=== PATIENT | male | born 1960 | race Caucasian/White ===

== ENCOUNTER 2024-02-21 08:26 | Inpatient (IN) ==
--- NOTE | 2024-02-21 08:29 | Emergency Department Note ---
Impression & Plan ST elevation (STEMI) myocardial infarction, Chest pain, Unstable angina, Abnormal EKG ED Provider Note NAME: PRASHANTH PEREZ AGE: 64 SEX: M : 1960 ARRIVES VIA: Ambulance INFORMANT: Patient, ED PROVIDER(S): Edward Lewis DO CHIEF COMPLAINT: Chest pain HPI: The patient is a 64-year-old male who presented to the emergency department for an evaluation of chest pain. The patient describes left-sided chest pain with radiation to the left arm. 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 He does not wear a heart rate monitor so we cannot correlate this with a specific heart rate. He states when he rests the pain goes away. He has been having these episodes over the course the last week intermittently almost always with exertion. The patient denies having any nausea or vomiting. He denies having any difficulty breathing. The patient denies having any black or tarry stools. The patient went to see his family doctor today and had an abnormal EKG and was sent to the emergency department by ambulance. ROS: See above HPI for pertinent positives & negatives. A total of 10 systems reviewed and were otherwise negative. PAST MEDICAL HISTORY: See Below PAST SURGICAL HISTORY: See Below FAMILY HISTORY: See Below SOCIAL HISTORY: See Below HOME MEDICATIONS: See Below ALLERGIES: See Below VITALS: See Below PHYSICAL EXAMINATION: GENERAL: Patient is awake alert in no acute distress patient is resting comfortably and showing no signs of anxiety EYES: The conjunctivae are clear. The pupils are round and reactive. EARS, NOSE, MOUTH AND THROAT: The nose is without any evidence of any deformity. NECK: The neck is nontender and supple. RESPIRATORY: Normal respiratory effort is noted there is no evidence of wheezing rhonchi or rales CARDIOVASCULAR: Regular rate and rhythm noted there no murmurs rubs or gallops normal S1 normal S2. GASTROINTESTINAL: The abdomen is soft. Abdomen is nontender. MUSCULOSKELETAL/EXTREMITIES: There is no evidence of gross deformity full range of motion is noted in the hips and shoulders. SKIN: There is no obvious evidence of any rash. There are no petechiae, pallor or cyanosis noted. NEUROLOGIC: Patient is awake alert and oriented x3 MEDICAL DECISION MAKING: The patient is a 64-year-old male who presented to the emergency department for an evaluation of chest pain. The patient was seen by his primary care physician and had an EKG that showed ischemia. He was sent to the emergency department by ambulance. The patient had no symptoms. He related symptoms only with exertion. I discussed the patient's laboratory and radiographic studies with him. EKG appeared to be consistent with regional ischemia. The patient was treated with aspirin prior to arrival. He was treated with Brilinta as well as heparin in the emergency department. He remained pain-free. I discussed his condition with the tapering machine operator. Since this was not a true ST segment elevation ND he was not made a heart alert and the patient did not have any pain while in the emergency department. I discussed his condition with the on-call [facility] Hospitalist group. They have agreed to evaluate the patient after cardiac catheterization. The patient was agreeable to cardiac catheterization and was taken to the Service Desk Agent to be evaluated by Dr. Garcia. Triage Nursing notes reviewed. Prior medical records reviewed Vital Signs: reviewed and remarkable for bradycardia. Differential diagnosis: Cardiac ischemia, aortic dissection, pulmonary embolism, pneumothorax, pneumonia, pericarditis, myocarditis, esophageal rupture, GERD, cholecystitis, pancreatitis, musculoskeletal, as well as other pathologies. ER treatment provided: See below Diagnostics interpreted by me: ECG: EKG was obtained in the emergency department. My interpretation is sinus bradycardia at 58 bpm. There is no ectopy. ST segment elevations were noted in aVL as well as aVR. This has the appearance of widespread ischemia but no specific ST segment elevation ND was noted. No previous tracing was available. A prehospital EKG was reviewed. My interpretation is sinus rhythm at 60 bpm. There is no ectopy. Similar ST depression was noted in the inferior apical and low lateral leads. An EKG that was obtained in the patient's primary care physician's office was reviewed. My interpretation is sinus bradycardia [address] depressions were noted in the inferior apical and low lateral leads with T wave versions as well. This appears similar to the EKG obtained in the emergency department. Cardiac Monitoring: An order was placed for continuous cardiac monitoring. The monitor shows a rate of 59 bpm with sinus bradycardia. Laboratory studies: As stated above and show below. Imaging studies: See below. Radiographic imaging was reviewed by myself Consultation(s): I discussed this case with Dr. Garcia who is on-call for interventional cardiology. I discussed this case with Salome who is on-call for the [facility] hospitalist group. ED COURSE: Procedures: none Critical Care: I have personally spent greater than 45 minutes of critical care time in the direct management of this patient. This includes bedside care, interpretation of diagnostic studies, and testing, discussion with consultants, patient, and family members, and other required patient management activities. This 45 minutes is in excess of all separately billable procedures. Past Med/Surg History Medical History (Updated 02/21/24 @ 13:37 by Edward Lewis DO) High cholesterol Surgical History (Updated 02/21/24 @ 12:14 by Marielle Alexandra PA-C) S/P drug eluting coronary stent placement Social History Smoking Status: Never smoker Hx Alcohol Use: Yes Alcohol type: beer Hx Substance Use: No Current Living Situation: Family Feels Safe at Home: Yes Safety Concerns: Feels Safe At This Time Allergies Allergies Allergy/AdvReac Type Severity Reaction Status Date / Time No Known Drug Allergies Allergy Unknown Verified 02/21/24 09:42 Results & Data (ED) Vital Signs Vital Signs - 24 hr 02/21/24 08:32 02/21/24 08:32 02/21/24 08:32 Temperature 36.6 C Temperature Source Oral Pulse Rate 61 Pulse Rate [Finger] Pulse Rhythm [Finger] Pulse Strength [Finger] Respiratory Rate 18 Respiratory Effort / Characteristics Non-Labored Non-Labored Respiratory Depth Normal Respiratory Pattern Blood Pressure 174/111 H Blood Pressure [Right Arm] Blood Pressure Mean 132 Blood Pressure Mean [Right Arm] Blood Pressure Position [Right Arm] Pulse Oximetry 96 Oxygen Delivery Method Room Air Room Air Sepsis Recent Fever Within 48 Hours No Sepsis New/Unexplained Change in Mental Status No Sepsis Action Taken by Nursing No Action Required 02/21/24 08:39 02/21/24 09:03 02/21/24 09:42 Temperature 36.8 C Temperature Source Oral Pulse Rate 61 Pulse Rate [Finger] 63 58 L Pulse Rhythm [Finger] Regular Pulse Strength [Finger] Normal Respiratory Rate 16 18 Respiratory Effort / Characteristics Non-Labored Non-Labored Respiratory Depth Normal Normal Respiratory Pattern Regular Blood Pressure Blood Pressure [Right Arm] 160/89 H 154/105 H Blood Pressure Mean Blood Pressure Mean [Right Arm] 112 121 Blood Pressure Position [Right Arm] Lying Pulse Oximetry 98 99 Oxygen Delivery Method Room Air Room Air Sepsis Recent Fever Within 48 Hours Sepsis New/Unexplained Change in Mental Status Sepsis Action Taken by Nursing 02/21/24 11:30 02/21/24 11:45 02/21/24 12:00 Temperature Temperature Source Pulse Rate Pulse Rate [Finger] 66 61 59 L Pulse Rhythm [Finger] Regular Regular Regular Pulse Strength [Finger] Normal Normal Normal Respiratory Rate 18 18 18 Respiratory Effort / Characteristics Non-Labored Non-Labored Non-Labored Respiratory Depth Normal Normal Normal Respiratory Pattern Regular Regular Regular Blood Pressure Blood Pressure [Right Arm] 145/92 H 134/86 142/90 H Blood Pressure Mean Blood Pressure Mean [Right Arm] 109 102 107 Blood Pressure Position [Right Arm] Lying Lying Lying Pulse Oximetry 100 100 98 Oxygen Delivery Method Room Air Room Air Room Air Sepsis Recent Fever Within 48 Hours Sepsis New/Unexplained Change in Mental Status Sepsis Action Taken by Nursing 02/21/24 12:15 02/21/24 12:30 02/21/24 12:45 Temperature Temperature Source Pulse Rate Pulse Rate [Finger] 58 L 60 59 L Pulse Rhythm [Finger] Regular Regular Regular Pulse Strength [Finger] Normal Normal Normal Respiratory Rate 18 16 16 Respiratory Effort / Characteristics Non-Labored Non-Labored Non-Labored Respiratory Depth Normal Normal Normal Respiratory Pattern Regular Regular Regular Blood Pressure Blood Pressure [Right Arm] 142/74 H 144/81 H 114/54 L Blood Pressure Mean Blood Pressure Mean [Right Arm] 96 102 74 Blood Pressure Position [Right Arm] Lying Lying Lying Pulse Oximetry 100 100 98 Oxygen Delivery Method Room Air Room Air Room Air Sepsis Recent Fever Within 48 Hours Sepsis New/Unexplained Change in Mental Status Sepsis Action Taken by [facility] Medications Current Medication List: was personally reviewed by me Laboratory Data Attestation: I reviewed the patient's lab results. 02/21/24 08:35 02/21/24 08:35 Lab Results 02/21/24 02/21/24 02/21/24 Range/Units 08:35 10:52 11:09 WBC 7.65 (4.8-10.8) K/ul RBC 5.23 (4.70-6.10) M/uL Hgb 16.0 (14.0-18.0) g/dl Hct 46.5 (42.0-52.0) % MCV 88.9 (80.0-100.0) fL MCH 30.6 (25.0-34.0) pg MCHC 34.4 (32.0-36.0) g/dL RDW Std Deviation 40.2 (36.4-46.3) fL RDW Coeff of Kasandra 12.3 (11.5-14.5) % Plt Count 257 (130-400) K/uL MPV 9.5 (9.4-12.4) fL Immature Gran % (Auto) 0.5 % Neut % (Auto) 68.4 % Lymph % (Auto) 20.8 % [place] % (Auto) 8.1 % Eos % (Auto) 1.7 % Baso % (Auto) 0.5 % Neut # (Auto) 5.23 (1.40-6.50) K/uL Lymph # (Auto) 1.59 (1.20-3.40) K/uL [place] # (Auto) 0.62 H (0.11-0.59) K/uL Eos # (Auto) 0.13 (0.00-0.50) K/uL Baso # (Auto) 0.04 (0.00-0.20) K/uL Immature Gran # (Auto) 0.04 (0.01-0.20) K/uL PT 10.2 (9.0-12.0) Seconds INR 0.9 (0.9-1.1) APTT 29 (21-31) Seconds PTT Ratio 1.1 Activ Coag Time Kaolin 239 H 266 H (94-140) SECONDS Sodium 143 (136-145) mmol/L Potassium 4.5 (3.5-5.1) mmol/L Chloride 108 H (98-107) mmol/L Carbon Dioxide 29 (21-32) mmol/L Anion Gap 6 (3-11) BUN 21 (6-23) mg/dl Creatinine 1.04 (0.6-1.4) mg/dl Est Cr Clr Drug Dosing 75.5 ml/min Est GFR ( Amer) 88.1 ml/min Est GFR (Non-Af Amer) 76.1 ml/min BUN/Creatinine Ratio 20.2 H (10-20) Glucose 120 H (70-99(Fasting)) mg/dl Calcium 9.7 (8.6-10.3) mg/dl Total Bilirubin 0.7 (0.2-1.0) mg/dl AST 16 (13-39) U/L ALT 19 (7-52) U/L Alkaline Phosphatase 48 (34-104) U/L Troponin I High Sens 73.1 H* (0-20) pg/ml Total Protein 7.6 (6.0-8.3) gm/dl Albumin 4.6 (3.4-5.0) gm/dl Globulin 3.0 (2.5-4.0) gm/dl Albumin/Globulin Ratio 1.5 (0.9-2) Lipase 17 (11-82) U/L Administered Medications Heparin Sodium/Dextrose (Heparin Sodium/Dextrose) 25,000 units in 500 mls @ 18 mls/hr IV .Q24H FADY; Protocol Stop: 03/22/24 08:59 Last Admin: 02/21/24 08:57 Dose: 900 units/hr, 18 mls/hr Documented By: HERBIE Co-signed By: FREDDY Discontinued Medications Fentanyl Citrate (Fentanyl Citrate Pf 100 Mcg/2 Ml Vial) Confirm Administered Dose 100 mcg .ROUTE .STK-MED ONE Stop: 02/21/24 09:48 Last Increment: 02/21/24 11:08 Dose: 75 mcg Documented By: JOSUE Heparin Sodium (Porcine) (Heparin Sod (Porcine) 1000 Unit/Ml) 1 units IV NOW ONE Stop: 02/21/24 08:54 Last Admin: 02/21/24 08:57 Dose: 4,000 units Documented By: HERBIE Co-signed By: FREDDY Heparin Sodium (Porcine) (Heparin (Porcine) 1000 Unit/Ml 10 Ml (Service Desk Agent Use Only)) Confirm Administered Dose 10,000 units .ROUTE .STK-MED ONE Stop: 02/21/24 09:48 Last Admin: 02/21/24 11:11 Dose: 8,000 units Documented By: JOSUE Heparin Sodium/Dextrose (Heparin Iv Adult Wt-Based Low-Dose W/ Initial Bolus Protocol) 1 each IV NOW STA; Protocol Stop: 02/21/24 08:39 Last Admin: 02/21/24 09:06 Dose: Not Given Documented By: HERBIE Heparin Sodium/Sodium Chloride (Heparin In Nss Infusion 1000 Unit/500 Ml (2 U/Ml) Bag) Confirm Administered Dose 3,000 units IV .STK-MED ONE Stop: 02/21/24 09:48 Last Admin: 02/21/24 10:35 Dose: 3,000 units Documented By: JOSUE Ioversol (Optiray 350) Confirm Administered Dose 1 ml .ROUTE .[facility]-MED ONE Stop: 02/21/24 09:48 Last Admin: 02/21/24 11:09 Dose: 140 ml Documented By: JOSUE Midazolam HCl (Midazolam Hcl 1 Mg/Ml 2ml Vial) Confirm Administered Dose 2 mg .ROUTE .STK-MED ONE Stop: 02/21/24 09:48 Last Admin: 02/21/24 11:08 Dose: 2 mg Documented By: JOSUE Nicardipine HCl (Nicardipine Hcl Inj 2.5 Mg/Ml 10 Ml Amp) Confirm Administered Dose 25 mg .ROUTE .[facility]-MED ONE Stop: 02/21/24 09:48 Last Admin: 02/21/24 10:35 Dose: 25 mg Documented By: JOSUE Nitroglycerin/Dextrose (Nitroglycerin/D5w 100mcg/Ml 20ml Syr) Confirm Administered Dose 2,000 mcg .ROUTE .[facility] ONE Stop: 02/21/24 09:48 Last Admin: 02/21/24 10:35 Dose: 2,000 mcg Documented By: JOSUE Protamine Sulfate (Protamine Sulfate 10 Mg/Ml 5 Ml Vial) Confirm Administered Dose 50 mg IV .[facility] ONE Stop: 02/21/24 12:28 Last Admin: 02/21/24 12:36 Dose: 10 mg Documented By: CELESTINO Ticagrelor (Ticagrelor 90 Mg Tab) 180 mg PO ONE ONE Stop: 02/21/24 08:39 Last Admin: 02/21/24 08:58 Dose: 180 mg Documented By: HERBIE Imaging Data Attestation: I personally reviewed and interpreted this imaging study as follows: My Impression: 1 view chest x-ray was obtained in the emergency department. My interpretation is no free air or definite infiltrate, final report below. Radiologist's Impression: Chest X-Ray 02/21/24 08:28 XR chest 1V portable CLINICAL HISTORY: Chest pain, nonspecific TECHNIQUE: Single frontal radiograph of the chest was obtained. Comparison: None available at the time of this dictation. FINDINGS: No lines and tubes are seen. The cardiomediastinal silhouette is normal. The lungs are clear. No evidence of pleural effusion or pneumothorax. IMPRESSION: No acute chest disease. ACT 112: Negative or not required by law. Electronically signed by: Andry Caicedo M.D. 02/21/2024 8:58 AM Discharge Plan Visit Data Chief Complaint: Cardiac Assessment ED Provider: Edward Lewis Discharge Problem: ST elevation (STEMI) myocardial infarction, Chest pain, Unstable angina, Abnormal EKG Patient Disposition: Being Evaluated by Hospitalist Discharge Instructions Interventions: ED Discharge Assessment Last Done: 02/21/24 09:28 Discharge Problem: ST elevation (STEMI) myocardial infarction Qualifiers: Involved coronary artery: unspecified coronary artery Qualified Code(s): I21.3 - ST elevation (STEMI) myocardial infarction of unspecified site Chest pain Qualifiers: Chest pain type: unspecified Qualified Code(s): R07.9 - Chest pain, unspecified
[2024-02-21 08:57] LABS: INR 0.9 (0.9-1.1); Partial Thromboplastin Ratio 1.1; Partial Thromboplastin Time 29 Seconds (21-31); Prothrombin Time 10.2 Seconds (9.0-12.0)
[2024-02-21] MEDS: HEPARIN SODIUM/DEXTROSE 25,000 UNITS/500 ML BAG IV SCH (08:57)
[2024-02-21] MEDS: HEPARIN SOD (PORCINE) 1000 UNIT/ML IV ONE (08:57)
[2024-02-21 08:58] LABS: Basophils # (auto) 0.04 K/uL (0.00-0.20); Basophils % (auto) 0.5 %; Eosinophils # (auto) 0.13 K/uL (0.00-0.50); Eosinophils % (auto) 1.7 %; Hematocrit (blood only) 46.5 % (42.0-52.0); Immature Granulocytes # (auto) 0.04 K/uL (0.01-0.20); Immature Granulocytes % (auto) 0.5 %; Lymphocytes # (auto) 1.59 K/uL (1.20-3.40); Lymphocytes % (auto) 20.8 %; Mean Corpuscular Hemoglobin 30.6 pg (25.0-34.0); Mean Corpuscular Hgb Conc 34.4 g/dL (32.0-36.0); Mean Corpuscular Volume 88.9 fL (80.0-100.0); Mean Platelet Volume 9.5 fL (9.4-12.4); Monocytes # (auto) 0.62 K/uL (0.11-0.59); Monocytes % (auto) 8.1 %; Neutrophils # (auto) 5.23 K/uL (1.40-6.50); Neutrophils % (auto) 68.4 %; Platelet Count 257 K/uL (130-400); RDW Coefficient of Variation 12.3 % (11.5-14.5); RDW Standard Deviation 40.2 fL (36.4-46.3); Red Blood Count 5.23 M/uL (4.70-6.10); White Blood Count 7.65 K/ul (4.8-10.8)
[2024-02-21] MEDS: TICAGRELOR 90 MG TAB PO ONE (08:58)
--- NOTE | 2024-02-21 09:00 | XRay Report ---
XR chest 1V portable CLINICAL HISTORY: Chest pain, nonspecific TECHNIQUE: Single frontal radiograph of the chest was obtained. Comparison: None available at the time of this dictation. FINDINGS: No lines and tubes are seen. The cardiomediastinal silhouette is normal. The lungs are clear. No evid ence of pleural effusion or pneumothorax. IMPRESSION: No acute chest disease. ACT 112: Negative or not required by law. Electronically signed by: Andry Caicedo M.D. 02/21/2024 8:58 AM
[2024-02-21] MEDS: Heparin IV Adult Wt-Based Low-Dose w/ INITIAL Bolus Protocol IV STA (09:06)
[2024-02-21] MEDS ORDERED: HEPARIN SOD (PORCINE) 1000 UNIT/ML IV ONE (09:15)
[2024-02-21 09:17] LABS: Albumin Globulin Ratio 1.5 (0.9-2); Albumin Level 4.6 gm/dl (3.4-5.0); BUN Creatinine Ratio 20.2 (10-20); Bilirubin,Total 0.7 mg/dl (0.2-1.0); Calcium 9.7 mg/dl (8.6-10.3); Creatinine Clr Calc Pharmacy 75.5 ml/min; Est GFR (African American) 88.1 ml/min; Est GFR (Non-African American) 76.1 ml/min; Potassium 4.5 mmol/L (3.5-5.1); Total Protein 7.6 gm/dl (6.0-8.3)
[2024-02-21 09:27] LABS: Troponin I High Sensitivity 73.1 pg/ml (0-20)
--- NOTE | 2024-02-21 10:16 | Pre Anesthesia Assessment ---
Date of Service February 21, 2024 Pre Sedation Assessment Vital Signs Temp Pulse Pulse Resp BP BP Pulse Ox 02/21/24 09:42 98.2 F 58 L 18 154/105 H 99 02/21/24 09:03 63 16 160/89 H 98 02/21/24 08:39 61 02/21/24 08:32 02/21/24 08:32 97.9 F 61 18 174/111 H 96 O2 Del Method 02/21/24 09:42 Room Air 02/21/24 09:03 Room Air 02/21/24 08:39 02/21/24 08:32 Room Air 02/21/24 08:32 Room Air Cardiovascular + regular rate Respiratory + respiratory effort normal Pre-Sedation Airway Assessment Smoking Status: Never smoker Hx Sleep Apnea: No Hx Difficult Intubation: No Short, Thick Neck: Yes Thyromental Distance: > or= 3.5 Finger Breadths Oral Cavity: + Capped Teeth Mallampati Class: I ASA: ASA2 Procedure Planning Contraindications for Sedation: none Current Medications Reviewed: Yes Notes The planned sedation has been discussed with the patient. Informed Consent was obtained. I have identified the patient, determined the appropriateness of sedation and have assessed the patient immediately prior to the procedure. All medicine(s) and interventions are by my order.
[2024-02-21] MEDS: niCARdipine HCL INJ 2.5 MG/ML 10 ML AMP ONE (10:35)
[2024-02-21] MEDS: NITROGLYCERIN/D5W 100MCG/ML 20ML SYR ONE (10:35)
[2024-02-21] MEDS: MIDAZOLAM HCL 1 MG/ML 2ML VIAL ONE (11:08)
[2024-02-21] MEDS: fentaNYL citrate PF 100 MCG/2 ML VIAL ONE (11:08)
[2024-02-21] MEDS: OPTIRAY 350 ONE (11:09)
[2024-02-21] MEDS: HEPARIN (PORCINE) 1000 UNIT/ML 10 ML (CATH LAB USE ONLY) ONE (11:11)
--- NOTE | 2024-02-21 11:40 | History & Physical Report ---
Date of Service February 21, 2024 Assessment & Plan (1) Chest pain: (2) Chest tightness: (3) Abnormal EKG: (4) NSTEMI (non-ST elevation myocardial infarction): (5) S/P drug eluting coronary stent placement: Plan: Michael Brewster is a 64y/o M with PMHx of hyperlipidemia [on Crestor] who presented to the ED via EMS for further evaluation of an abnormal EKG discovered at his PCP appointment this morning. As noted above, patient was seen by his PCP this morning for evaluation of ongoing chest pain/tightness w/ exertion x 2 weeks and was sent here via ambulance as his in-office his EKG revealed abnormal findings of an acute ST elevation MN involving the LAD coronary artery. EKG performed in the ED revealed evidence of NSTEMI. Patient loaded with heparin and Brilinta in ED. Patient then underwent successful PCI of mid RCA with single ISAC placement, performed by Dr. Garcia. Multivessel coronary artery disease noted as well during cardiac catheterization procedure: 95% acute mid RCA, 80-90% small mid RPDA [too small for PCI], 40% distal LMCA. -Admit to PCU, continuous cardiac monitoring -Dr. Garcia consulted for further cardiac management -A1C and fasting lipid panel in AM -Continue Brilinta -Started on aspirin, rosuvastatin, lisinopril (6) Hyperlipidemia: Plan: -Was taking rosuvastatin 20mg daily at home -High-dose statin therapy of rosuvastatin 40mg now initiated Code Status: Full Code PCP: Teagan Briscoe MD Dispo: Admit to PCU Patient seen in collaboration with Dr. Kirkland. Please see addendum. I spent a total of 75 minutes coordinating, documenting, and providing care for this patient excluding time spent in the performance of separately billed services. This included personally reviewing all current laboratories and imaging studies, medical reconciliation, outpatient chart review and discussion with specialists. History of Present Illness Chief Complaint: Abnormal EKG Primary Care Provider: Teagan Briscoe MD Michael Brewster is a 64y/o M with PMHx of hyperlipidemia [on Crestor] who presented to the ED via EMS for further evaluation of an abnormal EKG discovered at his PCP appointment this morning. History obtained from patient, and associated ED/PCP records. Patient seen at bedside in the ED, and was accompanied in the room by his . Patient seen with Dr. Kirkland and Salome Lewis PA-C. As noted above, patient was seen by his PCP this morning for evaluation of ongoing chest pain/tightness w/ exertion x 2 weeks and was sent here via ambulance as his in-office his EKG revealed abnormal findings of an acute ST elevation MN involving the LAD coronary artery. Patient reports that he is very active, and endorses running ~3-4 miles 3- 4x/week. Over the past 2 weeks, he has been experiencing chest pain/tightness while running that resolves with rest. Patient denies any previous personal cardiac hx, but does report an extensive family hx of cardiac issues. His reports that he had an episode the other day where he woke up in the middle of the night with some chest discomfort that resolved rather quickly, but he denies any orthopnea or any other incidences of chest pain/tightness at rest. He mentions that he participated in a 5K yesterday with his and mostly walked, but did state he jogged a few times to see if the chest pain/tightness would happen again and it did. He does endorse some mild tingling down his left arm during these episodes in addition to the chest pain, and states that tightness is primarily felt on the left side of his chest. He denies any incidence of numbness in his left arm. However, to once again reiterate, the chest pain/tightness and left arm tingling completely resolves with rest. Patient denies any having any difficulty breathing or associated N/V. Nonsmoker. He does endorse consuming ~6-7 craft beers/week, but states he does not drink any more than 2 beers at a time. EKG performed in the ED revealed the following: sinus paul w/ ventricular rate of 58bpm, possible LAE, LAD and LVH w/ repolarization abnormality. Initial trop 73.1 in ED. He is already scheduled and set to go to the [facility] w/ Dr. Garcia this AM. Patient loaded with heparin and Brilinta in ED. Allergies Allergy/AdvReac Type Severity Reaction Status Date / Time No Known Drug Allergies Allergy Unknown Verified 02/21/24 09:42 Home Medications Medication Instructions Recorded Confirmed Type rosuvastatin 20 mg tablet 20 mg PO DAILY 02/21/24 02/21/24 History Past Med/Surg History Medical History High cholesterol Surgical History S/P drug eluting coronary stent placement Social History Smoking Status: Never smoker Hx Alcohol Use: Yes Alcohol type: beer Hx Substance Use: No Current Living Situation: Family Feels Safe at Home: Yes Safety Concerns: Feels Safe At This Time Review of Systems Review of Systems: At least ten systems reviewed and negative, except as noted in the HPI. Physical Exam Physical Exam: Please refer to Dr. Kirkland addendum for physical exam findings. Results & Data Results & Data Vital Signs (Past 12 Hours) Vital Signs Temp Pulse Pulse Resp BP BP Pulse Ox 02/21/24 09:42 36.8 C 58 L 18 154/105 H 99 02/21/24 09:03 63 16 160/89 H 98 02/21/24 08:39 61 02/21/24 08:32 02/21/24 08:32 36.6 C 61 18 174/111 H 96 O2 Del Method 02/21/24 09:42 Room Air 02/21/24 09:03 Room Air 02/21/24 08:39 02/21/24 08:32 Room Air 02/21/24 08:32 Room Air Laboratory Results Short CBC 02/21/24 Range/Units 08:35 WBC 7.65 (4.8-10.8) K/ul Hgb 16.0 (14.0-18.0) g/dl Hct 46.5 (42.0-52.0) % Plt Count 257 (130-400) K/uL BMP 02/21/24 08:35 Sodium 143 Potassium 4.5 Chloride 108 H Carbon Dioxide 29 BUN 21 Creatinine 1.04 Glucose 120 H Calcium 9.7 Liver Function 02/21/24 Range/Units 08:35 Total Bilirubin 0.7 (0.2-1.0) mg/dl AST 16 (13-39) U/L ALT 19 (7-52) U/L Alkaline Phosphatase 48 (34-104) U/L Albumin 4.6 (3.4-5.0) gm/dl Diagnostic Findings Chest X-Ray 02/21/24 08:28 XR chest 1V portable CLINICAL HISTORY: Chest pain, nonspecific TECHNIQUE: Single frontal radiograph of the chest was obtained. Comparison: None available at the time of this dictation. FINDINGS: No lines and tubes are seen. The cardiomediastinal silhouette is normal. The jeanne ngs are clear. No evidence of pleural effusion or pneumothorax. IMPRESSION: No acute chest disease. ACT 112: Negative or not required by law. Electronically signed by: Andry Caicedo M.D. 02/21/2024 8:58 AM Medications Administered Heparin Sodium/Dextrose (Heparin Sodium/Dextrose) 25,000 units in 500 mls @ 18 mls/hr IV .Q24H FADY; Protocol Stop: 03/22/24 08:59 Last Admin: 02/21/24 08:57 Dose: 900 units/hr, 18 mls/hr Documented By: HERBIE Co-signed By: FREDDY Discontinued Medications Fentanyl Citrate (Fentanyl Citrate Pf 100 Mcg/2 Ml Vial) Confirm Administered Dose 100 mcg .ROUTE .STK-MED ONE Stop: 02/21/24 09:48 Last Increment: 02/21/24 11:08 Dose: 75 mcg Documented By: JOSUE Heparin Sodium (Porcine) (Heparin Sod (Porcine) 1000 Unit/Ml) 1 units IV NOW ONE Stop: 02/21/24 08:54 Last Admin: 02/21/24 08:57 Dose: 4,000 units Documented By: HERBIE Co-signed By: FREDDY Heparin Sodium (Porcine) (Heparin (Porcine) 1000 Unit/Ml 10 Ml (Avionics Systems Technician Use Only)) Confirm Administered Dose 10,000 units .ROUTE .STK-MED ONE Stop: 02/21/24 09:48 Last Admin: 02/21/24 11:11 Dose: 8,000 units Documented By: JOSUE Heparin Sodium/Dextrose (Heparin Iv Adult Wt-Based Low-Dose W/ Initial Bolus Protocol) 1 each IV NOW STA; Protocol Stop: 02/21/24 08:39 Last Admin: 02/21/24 09:06 Dose: Not Given Documented By: HERBIE Heparin Sodium/Sodium Chloride (Heparin In Nss Infusion 1000 Unit/500 Ml (2 U/Ml) Bag) Confirm Administered Dose 3,000 units IV .STK-MED ONE Stop: 02/21/24 09:48 Last Admin: 02/21/24 10:35 Dose: 3,000 units Documented By: HEALTH CARE SOCIAL WORKER Ioversol (Optiray 350) Confirm Administered Dose 1 ml .ROUTE .STK-MED ONE Stop: 02/21/24 09:48 Last Admin: 02/21/24 11:09 Dose: 140 ml Documented By: HEALTH CARE SOCIAL WORKER Midazolam HCl (Midazolam Hcl 1 Mg/Ml 2ml Vial) Confirm Administered Dose 2 mg .ROUTE .STK-MED ONE Stop: 02/21/24 09:48 Last Admin: 02/21/24 11:08 Dose: 2 mg Documented By: HEALTH CARE SOCIAL WORKER Nicardipine HCl (Nicardipine Hcl Inj 2.5 Mg/Ml 10 Ml Amp) Confirm Administered Dose 25 mg .ROUTE .STK-MED ONE Stop: 02/21/24 09:48 Last Admin: 02/21/24 10:35 Dose: 25 mg Documented By: HEALTH CARE SOCIAL WORKER Nitroglycerin/Dextrose (Nitroglycerin/D5w 100mcg/Ml 20ml Syr) Confirm Administered Dose 2,000 mcg .ROUTE .STK-MED ONE Stop: 02/21/24 09:48 Last Admin: 02/21/24 10:35 Dose: 2,000 mcg Documented By: JOSUE Ticagrelor (Ticagrelor 90 Mg Tab) 180 mg PO ONE ONE Stop: 02/21/24 08:39 Last Admin: 02/21/24 08:58 Dose: 180 mg Documented By: JAM Code Status & VTE Plan Code Status FULL CODE Supervising Physician Co-Signing Physician Notes I have seen and discussed the case with the collaborating advanced practitioner. I agree with the above H&P. I have reviewed and confirmed the patients medical history, the findings on physical examination, and the patients diagnosis and treatment plan with Ibrahima SIFUENTES and agree with the information documented. In short, Mr. Brewster is a 64 year old gentleman with history of HLD who is admitted for management of NSTEMI. LHC revealed severe CAD and is s/p ISAC to mRCA. Lhc revealed Multivessel coronary artery disease -95% acute mid RCA. 80-90% small mid RPDA (too small for PCI). 40% distal LMCA (iFR LAD/LCx 0.94/0.98; CSA 7.4 mm2). GENERAL APPEARANCE: AxOx4, generally well-appearing male, no acute distress. HEENT: NC, AT. MMM. EOMI, clear conjunctiva, oropharynx clear. NECK: Supple without lymphadenopathy. No stiffness or restricted ROM. HEART: Normal rate and regular rhythm, normal S1/S1, no m/r/g LUNGS: CTAB, moving air well. No crackles or wheezes are heard. ABDOMEN: Soft, nontender, nondistended with good bowel sounds heard. BACK: No CVAT, no obvious deformity. EXTREMITIES: Without cyanosis, clubbing or edema. NEUROLOGICAL: Grossly nonfocal. Alert and oriented, moving all 4 extremities. CN not formally tested but appear grossly intact. Skin: Warm and dry without any rash. #Severe Multivessel CAD s/p #NSTEMI To PCU for continued monitoring Loaded with ticagrelor Continue asa and ticagrelor Continue statin, and ASCVD risk factor modification Cardiology on consult -Lisinopril 5mg qam, statin 40mg qam -ASA and brilinta Appreciate recommendations Rest of plan as above I spent a total of 35 minutes coordinating, documenting, and providing care for this patient excluding time spent in the performance of separately billed services. All of the aforementioned completed outside of collaborating with the assigned advanced practitioner for a full treatment plan. I have reviewed the advanced practitioner's documentation, and I agree with, and take responsibility for the plan of care (1) Chest pain Chest pain type: unspecified Qualified Code(s): R07.9 - Chest pain, unspecified (6) Hyperlipidemia Hyperlipidemia type: unspecified Qualified Code(s): E78.5 - Hyperlipidemia, unspecified
--- NOTE | 2024-02-21 12:03 | Post Anesthesia Assessment ---
Date of Service February 21, 2024 Post Sedation Assessment Vital Signs Temp Pulse Pulse Resp BP BP Pulse Ox 02/21/24 11:45 61 18 134/86 100 02/21/24 11:30 66 18 145/92 H 100 02/21/24 09:42 98.2 F 58 L 18 154/105 H 99 02/21/24 09:03 63 16 160/89 H 98 02/21/24 08:39 61 02/21/24 08:32 02/21/24 08:32 97.9 F 61 18 174/111 H 96 O2 Del Method 02/21/24 11:45 Room Air 02/21/24 11:30 Room Air 02/21/24 09:42 Room Air 02/21/24 09:03 Room Air 02/21/24 08:39 02/21/24 08:32 Room Air 02/21/24 08:32 Room Air Recovery Score Activity: Moves 4 extremities Respiration: Deep Breath/Cough Circulation: +/-20% PreAnes Value Consciousness: Fully Awake Oxygen Saturation: > 92% On Room Air Post Anesthesia Score: 10 Discharge Sedation Level of Care: Fast Track Phase II Post Sedation Plan On clinical assessment, the patient appears to have tolerated the sedation without complications. Patient is recovering as anticipated. Patient will continue to be monitored by nursing and may be discharged when sedation discharge criteria are met per below protocol. Upon Completions of procedure up to 15 minutes continue every 5 minute vital signs and the P.A.R. score; then discharge to a Phase I or Fast Track to Phase II per the following guidelines: * Discharge Patient to appropriate Phase II area if PAR is 8 or greater or return to pre- procedure baseline. The post - procedure orders will be as directed. * If PAR score is less than 8 or not return to pre-procedure baseline then patient will follow Phase I monitoring till PAR is reached for Phase II. The Phase I may be done in procedure room or may call to secure a Phase I area. * If naloxone or flumazenil are used for reversal, hold in Phase I for continued monitoring from when last reversal dose was given for a minimum of 60 minutes or longer pending the nurse and/or physician discretion of patient condition before discharge to Phase II. Please call the Sedation Physician to re-evaluate and complete post-note for discharge to Phase II area. Do NOT discharge from procedure sedation or Phase 1 until post- sedation evaluation note is complete by procedure /sedation MD Sedation Discharge Instructions to be given to the patient at discharge to home.
--- NOTE | 2024-02-21 12:15 | Cardiac Catheterization ---
[facility] Data: Blueprint Machine Operator Cardiac Status Clinical evaluation leading to the procedure CAD Presenation: Non STEMI Anginal Classification: CCS III Diagnostic Physicians Name: Jabari Garcia MD Closure Device Recommendations: PCI without planned CABG Cardiac Cath Procedure Full Procedure Date February 21, 2024 Pre-Procedure Diagnosis Pre-Procedure Diagnosis: Non STEMI AUC Score AUC Score: 8 Post-Procedure Diagnosis Post-Procedure Diagnosis: Severe CAD, Successful PCI and Normal Intracardiac Pressures Procedure(s) Performed Procedure(s) Performed: Coronary Angiography, Left Heart Cath, Drug Eluting Stent, IVUS and Fractional Flow [place] Resident Buyer Jabari Garcia MD Hooker Up(s) Showers Estimated Blood Loss Estimated Blood Loss: 15 Medication(s) Medication(s): Fentanyl, Heparin, Lidocaine 1%, Nicardipine, Nitroglycerin and Versed Medication(s): Ticagrelor Summary of Findings Indication: High risk NSTEMI Access: 6 Fr right radial artery Catheters: [place], JL 3.5 guide, JR4 guide Findings: LM -normal caliber, mildly calcified, 40% distal stenosis LAD -medium caliber, 30% ostial, 30% earlymid stenosis after D1. Remainder of mid to distal vessel without significant disease and extends to apex. Medium D1 without disease. Circumflex -medium caliber, diffuse 30% mid to distal disease. Medium OM 2 without significant disease. RCA -dominant, large caliber, mid segment calcified with acute 95+% stenosis. Distal vessel with luminal irregularities. Small RPDA with focal 80-90% mid stenosis. Large PLB's without significant disease. LVEDP -14 IVUS/IFR procedure: -Left main cannulated with JL 3.5 guide -BMW wire placed into distal LAD -Robertson IVUS catheter placed to mid LAD. Pullback revealed mild to moderate ostial LAD disease. Moderate, calcified distal left main stenosis (CSA 7.5 mm). Robertson Omni wire placed into distal LAD IFR LAD 0.94 Omni wire redirected into circumflex IFR circumflex 0.98 Decision to proceed with PCI of RCA -- PCI -- Antithrombotic therapy: Heparin, ticagrelor Procedure: RCA cannulated with JR4 guide Pre-procedure flow SAMUEL 3 BMW wire passed across lesion into distal vessel Mid RCA lesion predilated with 2.5 compliant balloon Dilated lesion stented with 3.5 x 18 mm Manish drug-eluting stent Stent post-dilated with 4.0 noncompliant balloon to high atmospheres IC vasodilators administered for spasm Post procedure SAMUEL 3 flow, stent well expanded with minimal residual stenosis and no apparent cardiac complications. Arterial Closure: TR band Summary: 1. Multivessel coronary artery disease -95% acute mid RCA. 80-90% small mid RPDA (too small for PCI). 40% distal LMCA (iFR LAD/LCx 0.94/0.98; CSA 7.4 mm2). 2. Normal intracardiac filling pressure 3. Successful PCI of mid RCA with single ISAC (3.5 x 18 mm Manish; post-dilated with 4.0 NC). Recommendations: To PCU for continued monitoring Loaded with Ticagrelor 180mg in ED Continue dual-antiplatelet therapy for at least 1 year Continue statin, and ASCVD risk factor modification Consult cardiac Rehab Hemodynamics Rest Ao:: 160/84/115 Final Ao: 125/69/94 LV: 165/15 Recommendations Recommendations: PCI without planned CABG Specimens Specimens: None Radiation Exposure (mGy) 2223 Contrast (mls) 110 Anesthesia Moderate 9827-4394 Procedural Complication(s) None Disposition PCU I attest to the content of the Intraoperative Record and any orders documented therein. Any exceptions are noted below. [facility] Card Cath Procedure Codes Cardiac Catheterization Procedure 1: Cardiovascular Cath Procedures: 38071 Coronaries and LHC (+/-LV) Moderate Sedation Procedure 1: Sedation/Anesthesia: 34630 Mod Sedation by the same physician;Init15 Min Child Age 5 & Up Procedure 2: Sedation/Anesthesia: 97649 Mod Sedation by the same physician; Ea [id number] Minutes Stenting Procedure 1: Cardiovascular Stent Procedures: 41809 Perc transcatheter placement of int racoronary stent(s), with ang PG Care Time/CCT Total # of Minutes Spent Total Time Spent with Patient: Total time spent is greater than 50% in coordination of care (as documented) at patient's floor/unit and/or counseling patient:
[2024-02-21] MEDS: PROTAMINE SULFATE 10 MG/ML 5 ML VIAL IV ONE (12:36)
[2024-02-21] MEDS ORDERED: MAGNESIUM HYDROXIDE SUSP 30 ML UDC PO PRN (16:52)
[2024-02-21] MEDS ORDERED: POLYETHYLENE (MIRALAX) 17 GM PACK PO PRN (16:52)
[2024-02-21] MEDS ORDERED: ALUMINUM/MAGNESIUM SUSP 30 ML UDC PO PRN (16:52)
[2024-02-21] MEDS ORDERED: ONDANSETRON INJ 2 MG/ML 2 ML VIAL IV PRN (16:52)
[2024-02-21 17:14] LABS: ANTI-Xa, UFH(UnfractionatedHep < 0.10 IU/ml (0.3-0.7)
--- NOTE | 2024-02-21 22:41 | Electrocardiogram Report ---
Test Reason : Blood Pressure : / mmHG Vent. Rate : 058 BPM Atrial Rate : 058 BPM P-R Int : 190 ms QRS Dur : 098 ms QT Int : 396 ms P-R-T Axes : 056 -31 -63 degrees QTc Int : 388 ms Sinus bradycardia Possible Left atrial enlargement Left axis deviation Voltage criteria for left ventricular hypertrophy Abnormal ECG No previous ECGs available Confirmed by Jose Heart ([id number]) on 02/21/2024 10:41:06 PM Referred By: Confirmed By:Jose Heart
--- NOTE | 2024-02-21 23:16 | Cardiology Consultation ---
Date of Consultation February 21, 2024 Assessment & Plan (1) CAD (coronary artery disease): ISAC to mid RCA. Residual moderate distal left main disease. Small RPDA disease. 2. Right forearm hematoma 3. Dyslipidemia 4. LVH, abnormal ECG Patient chest pain-free post PCI earlier today. Continues to have deep T wave inversions on telemetry/ECG. Suspect he may have significant LVH. Neurovascularly intact distal to right radial artery access site. No appreciable residual hematoma, suspect significant bruising. Plan: Continue to monitor on telemetry overnight Trend troponin until peak Echocardiogram in a.m. Continue DAPT with aspirin, ticagrelor for at least 1 year Rosuvastatin increased to 40 mg daily. Started on lisinopril. If stable overnight possible discharge tomorrow. Follow-up with cardiology in 1 to 2 weeks. Will discuss cardiac rehab at that time. History of Present Illness Attending Physician: Jennifer Kirkland MD History of Present Illness Mr. Brewster is a very pleasant 64-year-old male here with recent axillary angina and ECG concerning for high risk ACS. Patient seen urgently after contacted by ED. No prior cardiac history. Cardiac risk factors include dyslipidemia. Patient is an active runner and has noticed over the last 1 to 2 weeks increased exertional dyspnea and chest discomfort radiating to his left arm. Symptoms relieved with rest. Due to progressive symptoms seen by PCP today who referred to ED after abnormal ECG. In ED chest pain-free. ECG showed sinus rhythm with LVH with ST depression and deep T wave inversions in 2, 3, aVF and V4 through V6. Had subtle ST elevation and aVR, aVL and V1. Urgent cardiac catheterization revealed 95% acute mid RCA along with severe disease in small RPDA. Had moderate distal left main disease, nonobstructive by IVUS/FFR. Underwent PCI of RCA with single ISAC. Post procedure course complicated by hematoma involving right forearm proximal to radial artery access site. Treated with prolonged compression with BP cuff. At time of departure from [employer] Operator holding area forearm soft, radial pulse, distal sensation intact. Social history: Works at [employer]. . 2 adult children. Lifelong non-smoker. Allergies Allergy/AdvReac Type Severity Reaction Status Date / Time No Known Drug Allergies Allergy Unknown Verified 02/21/24 09:42 Home Medications Medication Instructions Recorded Confirmed Type rosuvastatin 20 mg tablet 20 mg PO DAILY 02/21/24 02/21/24 History Patient History Medical History High cholesterol Surgical History S/P drug eluting coronary stent placement Social History Smoking Status: Never smoker Hx Alcohol Use: Yes Alcohol type: beer Hx Substance Use: No Current Living Situation: Family Feels Safe at Home: Yes Safety Concerns: Feels Safe At This Time Review of Systems Review of Systems: All systems reviewed & are unremarkable except as noted in HPI & below Physical Exam Physical Exam: General: Comfortable HEENT: Sclerae anicteric Lungs: Clear to auscultation bilaterally, no crackles or wheezes Cardiac: Regular rate and rhythm, no murmurs. Vascular: Right radial artery access site soft with no appreciable hematoma. Distal pulse and sensation intact. Normal distal capillary refill. Abdomen: Soft, nontender Extremities: Well perfused, no peripheral edema Neuro: Nonfocal Psych: Alert orient x3, normal affect and mood Results & Data Vital Signs (Past 12 Hours) Vital Signs Temp Pulse Pulse Resp BP BP Pulse Ox 02/21/24 19:31 97.7 F 58 L 18 131/79 95 02/21/24 18:22 59 L 18 125/75 97 02/21/24 17:25 66 146/81 H 02/21/24 17:07 68 163/73 H 02/21/24 16:47 56 L 16 133/77 97 02/21/24 16:28 58 L 142/71 H 97 02/21/24 16:05 62 02/21/24 16:05 97.7 F 59 L 16 164/83 H 99 02/21/24 15:15 62 16 123/77 98 02/21/24 13:47 61 16 140/93 100 02/21/24 13:15 57 L 16 134/87 100 02/21/24 12:45 59 L 16 114/54 L 98 02/21/24 12:30 60 16 144/81 H 100 02/21/24 12:15 58 L 18 142/74 H 100 02/21/24 12:00 59 L 18 142/90 H 98 02/21/24 11:45 61 18 134/86 100 02/21/24 11:30 66 18 145/92 H 100 O2 Del Method 02/21/24 19:31 Room Air 02/21/24 18:22 Room Air 02/21/24 17:25 02/21/24 17:07 02/21/24 16:47 Room Air 02/21/24 16:28 Room Air 02/21/24 16:05 02/21/24 16:05 Room Air 02/21/24 15:15 Room Air 02/21/24 13:47 Room Air 02/21/24 13:15 Room Air 02/21/24 12:45 Room Air 02/21/24 12:30 Room Air 02/21/24 12:15 Room Air 02/21/24 12:00 Room Air 02/21/24 11:45 Room Air 02/21/24 11:30 Room Air PG Care Time/CCT Total # of Minutes Spent Total Time Spent with Patient: Total time spent is greater than 50% in coordination of care (as documented) at patient's floor/unit and/or counseling patient: Coding Level of Care Code 63020 IN/OBS CONSULT LVL 4,60M Diagnoses CAD (coronary artery disease) I25.10
--- NOTE | 2024-02-22 07:06 | Electrocardiogram Report ---
Test Reason : Blood Pressure : / mmHG Vent. Rate : 055 BPM Atrial Rate : 055 BPM P-R Int : 186 ms QRS Dur : 094 ms QT Int : 420 ms P-R-T Axes : 046 -30 -56 degrees QTc Int : 401 ms Sinus bradycardia Possible Left atrial enlargement Left axis deviation Left ventricular hypertrophy with repolarization abnormality ST segement changes concerning for ischemia Abnormal ECG When compared with ECG of 21-FEB-2024 08:32, ST no longer depressed in Anterolateral leads Confirmed by Jabari Weeks ([id number]) on 02/22/2024 7:06:03 AM Referred By: Jennifer Kirkland Confirmed By:Dieudonne Weeks
[2024-02-22 08:14] LABS: Hemoglobin 14.9 g/dl (14.0-18.0); Mean Corpuscular Hemoglobin 29.9 pg (25.0-34.0); Mean Corpuscular Hgb Conc 33.9 g/dL (32.0-36.0); Mean Corpuscular Volume 88.4 fL (80.0-100.0); Mean Platelet Volume 9.7 fL (9.4-12.4); Platelet Count 237 K/uL (130-400); RDW Coefficient of Variation 12.4 % (11.5-14.5); RDW Standard Deviation 39.9 fL (36.4-46.3); Red Blood Count 4.98 M/uL (4.70-6.10); White Blood Count 8.39 K/ul (4.8-10.8)
--- NOTE | 2024-02-22 08:48 | XCELERA ---
[id number]
[2024-02-22 08:55] LABS: Calcium 9.1 mg/dl (8.6-10.3); Chol HDL Ratio 3.4 (0-5); Creatinine Clr Calc Pharmacy 78.1 ml/min; Est GFR (African American) 92.4 ml/min; Est GFR (Non-African American) 79.7 ml/min; Potassium 4.3 mmol/L (3.5-5.1)
--- OUTSIDE RECORDS SUMMARY | 2024-02-22 08:59 | External Medical Summary | Summary of Care ---
Author Name Unknown Organization [facility] Address [address] [place] [address] Phone [phone] Care Team Providers Care Mrp Controller Name Role Phone Teagan Briscoe MD Primary Care Provid er Reason for Visit * Reason Onset Date Comments Acute Pt here today fo r chest tightness with excursion Immunizations 02/21/2024 Encounter Details Date Type Department Care Team (Latest Contact Info) Description 02/21/2024 7:20 AM EDT Office Visit [facility] [address] [place] [address] Russ Renteria MD [address] [place] [address] elevation myocardial infarction (STEMI) involving left anterior descending (LAD) coronary artery (HCC)*; Need for mlucenfytr-hkxomtf-kvxj ussis (Tdap) vaccine; Chest pain, unspecified type; Exertional chest pain; HTN, goal below 140/90; Hyperlipidemia, unspecified hyperlipidemia type; Family history of cardiovascular disease Allergies No known active allergiesdocumented as of this encounter (statuses as of 02/21/2024) Medications Medication Sig Dispensed Refills Start Date End Date Status Rosuvastatin Calcium 20 MG Oral Tablet (Crestor)Indications:Hy perlipidemia, unspecified hyperlipidemia type Take 1 Tablet by mouth in the morning. 90 Tablet 2 04/05/2023 Active documented as of this encounter (statuses as of 02/21/2024) Active Problems Problem Noted Date Diagnosed Date Family history of cardiovascular disease 024 HTN, goal below 140/90 02/21/2024 Murmur, cardiac 02/21/2024 Hyperlipidemia documented as of this encounter (statuses as of 02/21/2024) Immunizations Name Administration Dates Next Due COVID-19 mRNA, LNP-s, No Pre serve, 2-Dose Series (Moderna) 02/10/2021,01/13/2021 Seasonal Influenza, Quadrivalent, No Preserve, I M 07/28/2015 Seasonal Influenza, Split, IIV3, With Preserve, Inj 07/28/2014,08/04/2013 08/04/2014 TDAP (age 10 and older)(Boostrix) 06/22/2013 Zoster Vaccine Recombinant (Shingrix) 04/04/2022 documented as of this encounter Social History Tobacco Use Types Packs/Day Years Used Date Smoking Tobacco: Never Passive Smoke Exposure: Never Smokeless Tobacco: Never Tobacco Cessation:Counseling Given: Not Answered Alcohol Use Standard Drinks/Week Comments Yes 0 (1 standard drink = 0.6 oz pur e alcohol) Occasionally PHQ-2 Answer Date Recorded PHQ Adult Total Score 0 02/21/2024 Hunger Vital Sign Answer Date Recorded Within the past 12 months, y ou worried that your food would run out before you got the money to buy more. Never true 02/20/20 24 Within the past 12 months, t he food you bought just didn't last and you didn't have money to get more. Never true 02/20/2024 Sex and Gender Information Value Date Recorded Sex Assigned at Male 03/22/2022 6:24 AM EDT Gender Identity Male 03/22/2022 6:24 AM EDT Sexual Orientation Straight 03/22/2022 6: 24 AM EDT Job Start Date Occupation Industry Not on file Not on file Not on file documented as of this encounter Last Filed Vital Signs Vital Sign Reading Time Taken Comments Blood Pressure 150/88 02/21/2024 7:11 AM EDT Pulse 57 02/21/2024 7:11 AM EDT Temperature 36.5 C (97.7 F) 02/21/2024 7:11 AM ED T Respiratory Rate 16 02/21/2024 7:11 AM EDT Oxygen Saturation 99% 02/21/2024 7:11 AM EDT Inhaled Oxygen Concentration - - Weight 86 kg (189 lb 11.2 oz) 02/21/2024 7:11 AM EDT Height - - Body Mass Index 28.01 04/05/2023 8:07 AM EDT documented in this encounter Patient Instructions * Patient Instructions* Kaylee Prather LPN - 02/21/2024 7:11 AM EDT ~~PATIENT INSTRUCTIONS FOR TDAP VACCINE~~ Possible side effects of TDAP vaccine, (tetanus shot), are usually mild and can include: 1. Soreness or redness at injection site 2. Low grade fever 3. Body aches You may use a fever / pain reducing medication as needed for these symptoms. LET YOUR DOCTOR KNOW IMMEDIATELY IF YOU HAVE DIFFICULTY BREATHING OR SWALLOWING, EXPERIENCE ITCHINGOF FEET OR HANDS, HAVE SWELLING OF EYES, FACE OR INSIDE OF NOSE. documented in this encounter Progress Notes * Russ Renteria MD - 02/21/2024 7:41 AM EDT Subjective Michael Brewster is a 64 year old male. Chief Complaint Patient presents with Acute Pt here today for chest tightness with excursion Immunizations HPI: Here for lt sided chest pain on exertion Usually runs 3-4 miles 3-4 times per week And noticed lt sided, radiating to arm pain about 2 wks ago, he slowed down on running Pain last about a min and it has been recurrent with running Known HL , family hx of CAD in father BP has been running high a few years but more obvious since last year Known heart murmur Denies smoking, cough, asthma, inhaler use On daily activity , he does not have any sx EKG done - showed STEMI , mainly at LAD Called EMS, transferred to hospital Pt called his girlfriend too PMH: Patient Active Problem List Diagnosis Code Hyperlipidemia E78.5 Family history of cardiovascular disease Z82.49 HTN, goal below 140/90 I10 Murmur, cardiac R01.1 Current Outpatient Medications Medication Sig Dispense Refill Rosuvastatin Calcium 20 MG Oral Tablet (Crestor) Take 1 Tablet by mouth in the morning. 90 Tablet 2 No current facility-administered medications for this visit. Past Medical History: Diagnosis Date Hyperlipidemia Past Surgical History: Procedure Laterality Date COLONOSCOPY, DIAGNOSTIC (RECTUM) 07/28/2013 COLONOSCOPY FLEXIBLE PROXIMAL DIAGNOSTIC performed by Edward Narvaez MD at ENDOSCOPY [facility] COLONOSCOPY, DIAGNOSTIC (RECTUM) 05/10/2021 2-2 to 4 mm in sigmoid, diverticulosis in sigmoid, internal hemorrhoids / biopsies benign adenomatous polyps / 5 year recall / COLONOSCOPY FLEXIBLE PROXIMAL DIAGNOSTIC performed by Terrance Cooper MD at ENDOSCOPY [facility] INFORMATION Tonsillectomy INFORMATION Spiral fracture of Fibula with repair Review of patient's allergies indicates: No Known Allergies Family History Problem Relation Age of Onset Cancer Mother 70 Colon Cancer Heart Disorder Father CABG - 81 Cancer Father skin No Known Problems Sister Cancer Uncle (Unspecified) Prostate Cancer No Past Hx Other unaware of family history of skin diseases No Known Problems Son No Known Problems Son No Known Problems Son Family Status Relation Status Mo Alive Fa Sis Alive UNCLE (Not Specified) Other (Not Specified) Son Alive Son Alive Son Alive Social History Socioeconomic History Marital status: Single Spouse name: Not on file Number of children: Not on file Years of education: Not on file Highest education level: Not on file Occupational History Not on file Tobacco Use Smoking status: Never Passive exposure: Never Smokeless tobacco: Never Substance and Sexual Activity Alcohol use: Yes Comment: Occasionally Drug use: No Sexual activity: Yes Partners: Female Other Topics Concern Not on file Social History Narrative Not on file Social Determinants of Health Financial Resource Strain: Not on file Food Insecurity: No Food Insecurity (02/20/2024) Hunger Vital Sign Worried About Running Out of Food in the Last Year: Never true Ran Out of Food in the Last Year: Never true Transportation Needs: Not on file Physical Activity: Not on file Stress: Not on file Social Connections: Not on file Intimate Partner Violence: Not on file Housing Stability: Not on file Review of Systems Constitutional: Positive for activity change (lt sided exertional cp). Negative for appetite change, chills, diaphoresis, fatigue, fever and unexpected weight change. HENT: Negative for congestion and postnasal drip. Respiratory: Negative for cough, chest tightness, shortness of breath and wheezing. Cardiovascular: Positive for chest pain. Negative for palpitations and leg swelling. Gastrointestinal: Negative for abdominal distention, abdominal pain, nausea and vomiting. Endocrine: Negative. Genitourinary: Negative for hematuria. Musculoskeletal: Negative for back pain. Skin: Negative for color change and pallor. Allergic/Immunologic: Negative for environmental allergies. Neurological: Negative for dizziness, weakness, light-headedness and numbness. Psychiatric/Behavioral: Negative for agitation, behavioral problems, dysphoric mood and sleep disturbance. The patient is not nervous/anxious. Objective BP 150/88 | Pulse 57 | Temp 36.5 C (97.7 F) (Infrared ) | Resp 16 | Wt 86 kg (189 lb 11.2 oz) |SpO2 99% | BMI 28.01 kg/m | BSA 2.05 m Physical Exam Constitutional: General: He is not in acute distress. Appearance: Normal appearance. He is normal weight. He is not ill-appearing, toxic-appearing or diaphoretic. HENT: Head: Normocephalic and atraumatic. Nose: Nose normal. Eyes: Extraocular Movements: Extraocular movements intact. Cardiovascular: Rate and Rhythm: Normal rate and regular rhythm. Pulses: Normal pulses. Heart sounds: Murmur heard. Pulmonary: Effort: Pulmonary effort is normal. No respiratory distress. Breath sounds: Normal breath sounds. No stridor. No wheezing, rhonchi or rales. Chest: Chest wall: No tenderness. Abdominal: Palpations: Abdomen is soft. Musculoskeletal: General: No tenderness. Right lower leg: No edema. Left lower leg: No edema. Neurological: General: No focal deficit present. Mental Status: He is alert and oriented to person, place, and time. Cranial Nerves: No cranial nerve deficit. Psychiatric: Mood and Affect: Mood normal. Behavior: Behavior normal. ASSESSMENT/PLAN: Acute ST elevation myocardial infarction (STEMI) involving left anterior descending (LAD) coronary artery (HCC) (Primary) Need for nzpvqyrggs-xydigph-lalvlupyv (Tdap) vaccine Chest pain, unspecified type - EKG; Future; Expected date: 02/21/2024 - TROPONIN T, HIGH SENSITIVITY; Future; Expected date: 02/21/2024 - D-DIMER; Future; Expected date: 02/21/2024 - COMPREHENSIVE METABOLIC PANEL; Future; Expected date: 02/21/2024 - LIPID PANEL WITH DIRECT LDL IF TG IS HIGH; Future; Expected date: 02/21/2024 - TSH WITH FREE T4 IF INDICATED; Future; Expected date: 02/21/2024 - CBC WITH WBC DIFFERENTIAL; Future; Expected date: 02/21/2024 - EKG Exertional chest pain - EKG; Future; Expected date: 02/21/2024 - TROPONIN T, HIGH SENSITIVITY; Future; Expected date: 02/21/2024 - D-DIMER; Future; Expected date: 02/21/2024 - COMPREHENSIVE METABOLIC PANEL; Future; Expected date: 02/21/2024 - LIPID PANEL WITH DIRECT LDL IF TG IS HIGH; Future; Expected date: 02/21/2024 - TSH WITH FREE T4 IF INDICATED; Future; Expected date: 02/21/2024 - CBC WITH WBC DIFFERENTIAL; Future; Expected date: 02/21/2024 - EKG HTN, goal below 140/90 - EKG; Future; Expected date: 02/21/2024 - TROPONIN T, HIGH SENSITIVITY; Future; Expected date: 02/21/2024 - D-DIMER; Future; Expected date: 02/21/2024 - COMPREHENSIVE METABOLIC PANEL; Future; Expected date: 02/21/2024 - LIPID PANEL WITH DIRECT LDL IF TG IS HIGH; Future; Expected date: 02/21/2024 - TSH WITH FREE T4 IF INDICATED; Future; Expected date: 02/21/2024 - CBC WITH WBC DIFFERENTIAL; Future; Expected date: 02/21/2024 - EKG Hyperlipidemia, unspecified hyperlipidemia type - LIPID PANEL WITH DIRECT LDL IF TG IS HIGH; Future; Expected date: 02/21/2024 Family history of cardiovascular disease EKG - STEMI Sent to ER by EMS Russ Renteria MD * Kaylee Prather LPN - 02/21/2024 7:11 AM EDT Immunization Administration Documentation Tdap covered under Medicare Part D, prescription order pended for physician to sign. Kaylee Prather LPN documented in this encounter Nursing Notes * Kaylee Prather LPN - 02/21/2024 7:09 AM EDT Chief Complaint Patient presents with Acute Pt here today for chest tightness with excursion documented in this encounter Plan of Treatment Upcoming Encounters Date Type Department Care Team (Late st Contact Info) Description 04/10/2024 9:40 AM EDT Office Visit [facility] [address] [place] [address] Teagan Briscoe MD [address] [place] [address] Scheduled Orders Name Type Priority Associated Diagnoses Orde r Schedule EKG EKG Routine Chest pain, unspecified type Exertional chest pain HTN, goal below 140/90 Expected: 02/21/2024 (Approximate), Expires: 03/23/2025 TROPONIN T, HIGH SENSITIVITY Lab Routine Chest pain, unspecified type Exertional chest pain HTN, goal below 140/90 Expected: 02/21/2024 (Approximate), Expires: 02/20/2025 D-DIMER Lab Routine Chest pain, unspecified type Exertional chest pain HTN, goal below 140/90 Expected: 02/21/2024 (Approximate), Expires: 02/20/2025 COMPREHENSIVE METABOLIC PANEL Lab Routine Chest pain, unspecified type Exertional chest pain HTN, goal below 140/90 Expected: 02/21/2024 (Approximate), Expires: 02/20/2025 LIPID PANEL WITH DIRECT LDL IF TG IS HIGH Lab Routine Chest pain, unspecified type Exertional chest pain HTN, goal below 140/90 Hyperlipidemia, unspecified hyperlipidemia type Expected: 02/21/2024, Expires: 02/20/2025 TSH WITH FREE T4 IF INDICATED Lab Routine Chest pain, unspecified type Exertional chest pain HTN, goal below 140/90 Expected: 02/21/2024 (Approximate), Expires: 02/20/2025 CBC WITH WBC DIFFERENTIAL Lab Routine Chest pain, unspecified type Exertional chest pain HTN, goal below 140/90 Expected: 02/21/2024 (Approximate), Expires: 02/20/2025 Scheduled Procedures Name Priority Associated Diagnoses Date/Ti me COLONOSCOPY FLEXIBLE PROXIMAL DIAGNOSTIC Recall History of colon polyps Health Maintenance Due Date Last Done Comments Albumin/Creatinine Ratio 1979 Cologuard 2006 Fecal Occult Blood Test 2006 Sigmoidoscopy 2006 Zoster Vaccines (2 of 2) 05/30/2022 04/04/2022 GFR 04/05/2023 04/05/2022 COVID-19 Vaccine (3 - season) 2023 02/10/2021, 01/13/2021 DTaP,Tdap,and Td Vaccines (2 - Td or Tdap) 06/22/2023 06/22/2013 Influenza Vaccine (FLU shot) (Season Ended) 2024 07/28/2015, 07/28/2014, 08/04/2013 Depression Screening 02/20/2025 02/21/2024 Diabetes Screening 04/05/2025 04/05/2022, 0 04/05/2021, 07/28/2014, Additional history exists Lipid Panel 04/05/2027 04/05/2022, 03/15, 07/28/2014, Additional history exists Colonoscopy 05/10/2031 05/10/2021, 04/14, 07/28/2013, Additional history exists Colorectal Cancer Screening 05/10/2031 GARDASIL-HPV IMMUNIZATION SERIES Aged Out No longer eligible based on patient's age to complete this topic HIV Screening Discontinued Hepatitis B Aged Out No longer eligi ble based on patient's age to complete this topic Hepatitis C Screening Discontinued MENINGOCOCCAL (MENACTRA/MENVEO) Aged Out No longer eligible based on patient's age to complete this topic Pneumococcal Vaccine: Pediatrics (0 to 5 Years) and At-Risk Patients (6 to 64 Years) Aged Out No longer eligible based on patient's age to complete this topic documented as of this encounter Medical Devices Not on filedocumented as of this encounter Visit Diagnoses Diagnosis Acute ST elevation myocardial infarction (STEMI) involving left anterior descending (LAD) coronary artery (HCC)- Primary Need for ipcymzqctk-nxvcrpf-rdvjuxvfx (Tdap) vaccine Need for prophylactic vaccination with combined hexzneajpo-gsrupbv-rlwwwniyg (DTP) vaccine Chest pain, unspecified type Exertional chest pain Chest pain, unspecified HTN, goal below 140/90 Unspecified essential hypertension Hyperlipidemia, unspecified hyperlipidemia type Family history of cardiovascular disease Family history of other cardiovascular diseases documented in this encounter Care Teams Mrp Controller Relationship Specialty Start Date End Date Teagan Briscoe MD [address] [place] [phone] PCP - General Family Medicine 04/05/23 documented as of this encounter"
[2024-02-22 09:02] LABS: Troponin I High Sensitivity 285.8 pg/ml (0-20)
[2024-02-22 09:07] LABS: Estimated Average Glucose 114 mg/dl; Hemoglobin A1C 5.6 % (4.5-5.6)
[2024-02-22] MEDS: ROSUVASTATIN CALCIUM 20 MG TAB PO SCH (09:07)
[2024-02-22] MEDS: TICAGRELOR 90 MG TAB PO SCH (09:07)
[2024-02-22] MEDS: ACETAMINOPHEN 325 MG TAB PO PRN (09:07)
[2024-02-22] MEDS: ASPIRIN 81 MG ECTAB PO SCH (09:07)
[2024-02-22] MEDS: lisinopril 5 MG TAB PO SCH (09:08)
--- NOTE | 2024-02-22 10:36 | Cardiology Progress Note ---
Date of Service February 22, 2024 Assessment & Plan (1) CAD (coronary artery disease): Plan: ISAC to mid RCA. Residual moderate distal left main disease. Small RPDA disease. 2. Right forearm hematoma 3. Dyslipidemia 4. Moderate LVH, abnormal ECG Patient remains chest pain-free. Hemodynamically and electrically stable. Neurovascularly intact post right forearm hematoma. Echocardiogram reviewed. LV function preserved. Does have moderate LVH. Suspect persistent ECG abnormality secondary to LVH. LVH potentially out of proportion to hypertension. 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 Repeat troponin later this morning. If downtrending okay with discharge today. Continue DAPT with aspirin, ticagrelor for at least 1 year Rosuvastatin increased to 40 mg daily. Target LDL <55 Started on lisinopril. Further evaluation of LVH as an outpatient. Follow-up with cardiology in 1 to 2 weeks. Will discuss cardiac rehab at that time. Admission and Anticipated Discharge Date Admission Date: February 21, 2024 Subjective Feeling well this morning. Denies any chest pain. No other new concerns. Telemetry reviewedno events Review of Systems Review of Systems: All systems reviewed & are unremarkable except as noted in HPI & below Physical Exam Physical Exam: General: Comfortable HEENT: Sclerae anicteric Lungs: Clear to auscultation bilaterally, no crackles or wheezes Cardiac: Regular rate and rhythm, no murmurs. Vascular: Right radial artery access site soft with no appreciable hematoma. Ecchymosis extending into hand. Distal pulse and sensation intact. Normal distal capillary refill. Abdomen: Soft, nontender Extremities: Well perfused, no peripheral edema Neuro: Nonfocal Psych: Alert orient x3, normal affect and mood Results & Data Vital Signs (Past 12 Hours) Vital Signs Temp Pulse Resp BP Pulse Ox O2 Del Method 02/22/24 07:43 Room Air 02/22/24 07:25 97.5 F L 52 L 16 128/73 97 Room Air 02/22/24 02:38 98.1 F 53 L 18 117/73 96 Room Air PG Care Time/CCT Total # of Minutes Spent Total Time Spent with Patient: Total time spent is greater than 50% in coordination of care (as documented) at patient's floor/unit and/or counseling patient: Coding Level of Care Code 96775 SUB INP/OBS CARE 3/50MIN Diagnoses CAD (coronary artery disease) I25.10
--- NOTE | 2024-02-22 11:41 | Discharge Summary ---
Date of Service February 22, 2024 Admission HPI Per Admitting Provider Michael Brewster is a 64y/o M with PMHx of hyperlipidemia [on Crestor] who presented to the ED via EMS for further evaluation of an abnormal EKG discovered at his PCP appointment this morning. History obtained from patient, and associated ED/PCP records. Patient seen at bedside in the ED, and was accompanied in the room by his . Patient seen with Dr. Kirkland and Salome Lewis PA-C. As noted above, patient was seen by his PCP this morning for evaluation of ongoing chest pain/tightness w/ exertion x 2 weeks and was sent here via ambulance as his in-office his EKG revealed abnormal findings of an acute ST elevation WA involving the LAD coronary artery. Patient reports that he is very active, and endorses running ~3-4 miles 3- 4x/week. Over the past 2 weeks, he has been experiencing chest pain/tightness while running that resolves with rest. Patient denies any previous personal cardiac hx, but does report an extensive family hx of cardiac issues. His reports that he had an episode the other day where he woke up in the middle of the night with some chest discomfort that resolved rather quickly, but he denies any orthopnea or any other incidences of chest pain/tightness at rest. He mentions that he participated in a 5K yesterday with his and mostly walked, but did state he jogged a few times to see if the chest pain/tightness would happen again and it did. He does endorse some mild tingling down his left arm during these episodes in addition to the chest pain, and states that tightness is primarily felt on the left side of his chest. He denies any incidence of numbness in his left arm. However, to once again reiterate, the chest pain/tightness and left arm tingling completely resolves with rest. Patient denies any having any difficulty breathing or associated N/V. Nonsmoker. He does endorse consuming ~6-7 craft beers/week, but states he does not drink any more than 2 beers at a time. EKG performed in the ED revealed the following: sinus paul w/ ventricular rate of 58bpm, possible LAE, LAD and LVH w/ repolarization abnormality. Initial trop 73.1 in ED. He is already scheduled and set to go to the cardiac cath lab technologist w/ Dr. Garcia this AM. Patient loaded with heparin and Brilinta in ED. Admission Exam Per Admitting Provider GENERAL APPEARANCE: AxOx4, generally well-appearing male, no acute distress. HEENT: NC, AT. MMM. EOMI, clear conjunctiva, oropharynx clear. NECK: Supple without lymphadenopathy. No stiffness or restricted ROM. HEART: Normal rate and regular rhythm, normal S1/S1, no m/r/g LUNGS: CTAB, moving air well. No crackles or wheezes are heard. ABDOMEN: Soft, nontender, nondistended with good bowel sounds heard. BACK: No CVAT, no obvious deformity. EXTREMITIES: Without cyanosis, clubbing or edema. NEUROLOGICAL: Grossly nonfocal. Alert and oriented, moving all 4 extremities. CN not formally tested but appear grossly intact. Skin: Warm and dry without any rash. Principal Diagnosis NSTEMI status post PCI of RCA Discharge Exam Constitutional: WD/WN, vitals as above, NAD, sitting up in bed, pleasant, conversing easily Respiratory: normal respiratory effort, lungs clear to auscultation, no wheeze, rales, rhonchi. Normal insp/exp effort, no accessory muscle use Cardiovascular: RRR, no murmur, no edema Vessels: no JVD or carotid bruit Chest: normal inspection of chest Abdomen: normal bowel sounds, soft, nontender, no hepatosplenomegaly Musculoskeletal: no cyanosis or clubbing, extremities motor strength 5/5 Skin: no rashes, warm and dry normal turgor Neurologic: PERRL, EOMI, accommodation nl, no face palsy, no dysarthria CN's II- XI intact bilaterally and moves all extremities Psychiatric: A+Ox3, euthymic affect Discharge Data Allergies Allergy/AdvReac Type Severity Reaction Status Date / Time No Known Drug Allergies Allergy Unknown Verified 02/21/24 09:42 Consultations 02/21/24 08:38 Consult Cardiac Catheterization Stat 02/21/24 09:08 ED Decision to Admit Stat 02/21/24 12:46 Consult Cardiology Routine Procedures Performed Operation Date: 02/21/24 09:00 Actual Procedures s Cineradiography w/Routine Exam - Jabari Garcia MD p Cath, Left with Cors and Vent - Jabari Garcia MD s IVUS Coronary Single Vessel - Jabari Garcia MD p Drug Eluting Stent SGl Vessel - Jabari Garcia MD Ordered Studies 02/21/24 09:46 CL Cath Imgs for PACS use only Routine 02/21/24 11:39 CL IVUS Coronary Single Vessel Routine Hospital Course (1) Chest pain: (2) Chest tightness: (3) Abnormal EKG: (4) NSTEMI (non-ST elevation myocardial infarction): (5) S/P drug eluting coronary stent placement: (6) Hyperlipidemia: Michael Brewster is a 64y/o M with PMHx of hyperlipidemia [on Crestor] who presented to the ED via EMS for further evaluation of an abnormal EKG discovered at his PCP appointment this morning. Patient has a history of chest pain/tightness with exertion for the last 2 weeks. ECG showed sinus rhythm with LVH with ST depression and deep T wave inversions in 2, 3, aVF and V4 through V6. Had subtle ST elevation and aVR, aVL and V1. Patient underwent urgent cardiac catheterization which revealed 95% acute mid RCA occlusion along with severe disease in a small R PDA. Patient was started on dual antiplatelet agent with aspirin and Brilinta. He was previously on rosuvastatin which was changed to high-dose Lipitor due to interaction with Brilinta. He was started on lisinopril. Patient was discharged home with instructions to follow-up with his PCP and cardiology. Please note the above document was generated using voice recognition software. It may contain grammatical, syntax or spelling errors. Any formal questions or concerns about the content, text or information contained within the body of this dictation should be directly addressed to the provider for clarification Total Time Total Time Spent Total Time Spent (In Minutes): 45 Total Time Includes: Examination of the Patient, Discharge Planning, Medication Reconciliation, Communication With Other Providers and Other Discharge Plan Discharge Items Patient Disposition: Home - Self-Care Reason For Visit: ABNORMAL EKG Discharge Diagnosis: NSTEMI status post PCI of RCA Activity: Resume your previous activity Non-emergency contact: Primary Care Provider Call non-emergency contact if: you have any medication questions and your symptoms worsen Follow-up/Referrals: PCP,NO [Primary Care Provider] - Diet: Regular Addtl Attending Provider Instructions: You were admitted to the hospital due to chest pain. You are found to have blockages of one of the heart vessel (Right Coronary Artery) for which a stent was placed by cardiology. You are prescribed following medications: 1) Aspirin 81 mg once a day and Brilinta 90 mg twice a day. You need to be on both of these medications for at least 1 year. 2) Lisinopril 5 mg once a day 3) Lipitor 80 mg once a day You can stop taking rosuvastatin. Please follow-up with your primary care doctor. An appointment will be set up for you sometime next week. Please follow-up with cardiology as well. Pending Studies at Discharge: No Stand-Alone Forms: My [facility] Keep Your Pharmacy Open, Smoking Cessation Medications and DC Order Prescriptions: New lisinopril [Zestril] 5 mg Tablet 5 mg PO QAM Qty: 30 0RF Brilinta 90 mg Tablet 90 mg PO BID Qty: 120 0RF atorvastatin [Lipitor] 80 mg tablet 80 mg PO DAILY Qty: 30 0RF aspirin 81 mg Tablet,Delayed Release (Dr/Ec) 81 mg PO QAM Qty: 60 0RF Discontinued rosuvastatin 20 mg tablet 20 mg PO DAILY Discharge Orders: Discharge Order (Routine); Ordered 02/22/24 Ordered By: Juan Manuel Rodriguez Admission Data Admit Date/Time: 02/21/24 16:20 Attending Provider: Juan Manuel Rodriguez Admit Provider: Jennifer Kirkland Primary Care Provider: PCP,NO Other Providers: Jabari Garcia; Jennifer Kirkland
--- NOTE | 2024-02-27 14:28 | Electrocardiogram Report ---
Test Reason : Blood Pressure : / mmHG Vent. Rate : 061 BPM Atrial Rate : 061 BPM P-R Int : 192 ms QRS Dur : 110 ms QT Int : 402 ms P-R-T Axes : 045 -34 -54 degrees QTc Int : 404 ms Normal sinus rhythm Left axis deviation Left ventricular hypertrophy with repolarization abnormality vs ischemia Abnormal ECG When compared with ECG of 21-FEB-2024 08:32, ST less depressed in Inferior leads ST less depressed in Lateral leads Confirmed by Jabari Weeks ([id number]) on 02/27/2024 2:27:48 PM Referred By: Jennifer Kirkland Confirmed By:Dieudonne Weeks
== END 2024-02-22 13:37 | disposition home or self-care (01) | DRG 322 ==
LOC: ED 08:26 → OR 09:31 → 2S 09:31 → SUATTDRO 16:20